=== PATIENT | male | born 1970 | race Caucasian/White ===

== ENCOUNTER 2019-03-24 05:36 | Day surgery (SDC) | payer OTHER ==
[2019-03-24] MEDS ORDERED: COLACE100 MG PO (10:07)
[2019-03-24] MEDS ORDERED: PERCOCET 5-3251 EACH PO (10:07)
== END 2019-03-24 14:25 | disposition home or self-care (01) ==
LOC: CIR.AMB 05:36 → EDSTATUS 08:30 → CIR.AMB 11:45
DX: K60.1 Chronic anal fissure (principal)